=== PATIENT | female | born 1985 ===

== ENCOUNTER 2017-02-25 02:17 | Inpatient (IN) | payer MEDICAID ==
[2017-02-25 00:36] VITALS: BMI 33.9
[2017-02-25] MEDS ORDERED: Ampicillin 2 GM in Sodium Chloride 0.9% 100 ML IVPB STA (02:56)
[2017-02-25] MEDS ORDERED: Betamethasone Soluspan 30 mg/5mL Inj Susp IM ONE (02:56)
[2017-02-25] MEDS: Lactated Ringer's 1,000 ML IV SCH ×5 (03:00→17:00)
[2017-02-25] MEDS ORDERED: Magnesium Sulfate 2 gm/50 ml 2 GM/50 ML BAG IVPB ONE (03:05)
[2017-02-25] MEDS ORDERED: Magnesium Sulfate 4 gm/100 ml 4 GM/100 ML BAG IV ONE (03:07)
[2017-02-25] MEDS ORDERED: Magnesium Sul 40GM/1L SW 40 GM/1,000 ML ML IV ONE (03:07)
[2017-02-25 03:34] VITALS: O2SAT 99
[2017-02-25 04:26] LABS: RBC URINE 13 /hpf (0-3); URINE BACTERIA RARE (<OCC); URINE BILIRUBIN NEGATIVE (NEGATIVE); URINE BLOOD MODERATE (NEGATIVE); URINE COLOR YELLOW (YELLOW); URINE GLUCOSE (UA) NEG (Normal); URINE KETONE NEGATIVE (NEGATIVE); URINE LEUKOCYTE ESTERASE NEG Leu/uL (Negative); URINE PROTEIN NEGATIVE (NEGATIVE); URINE UROBILINOGEN 0.2-1.0 mg/dL (0.2-1.0); WBC URINE 2 /hpf (0-5)
[2017-02-25 04:29] LABS: BASO % 0.2 % (0.0-2.0); EOS # 0.1 K/uL (0.0-0.7); EOS % 1.2 % (0.0-4.0); LYMPH # 1.7 K/uL (1.0-4.3); LYMPH % 18.7 % (20.0-40.0); MEAN CELL VOLUME 85.2 fl (81.0-99.0); MEAN CORPUSCULAR HEMOGLOBIN 29.2 pg (27.0-31.0); MEAN CORPUSCULAR HGB CONC 34.3 g/dL (33.0-37.0); MONO # 0.4 K/uL (0.0-0.8); MONO % 4.9 % (0.0-10.0); NEUT # 6.8 K/uL (1.8-7.0); RED CELL DISTRIBUTION WIDTH 13.7 % (11.5-14.5); WHITE BLOOD COUNT 9.1 K/uL (4.8-10.8)
[2017-02-25] MEDS ORDERED: AMPicillin 1 GM in Sodium Chloride 0.9% 100 ML IVPB SCH (05:00)
--- NOTE | 2017-02-25 07:44 | OBADHP ---
Datetime: 02/25/2017 03:52 Admit Comment, IP Provider: 32 y/o female IUP at 35.2wks gestation with MARGIE 03/31 based on 8wk U/S (pt is unsure of LMP) transferred from [facility] for SPROM and intermittent contractions. P t had ROM at 23:30hrs and has been complaining of back pain [id number]. Was reported at [facility], [place] to be 2 -3cm dilated on exam. Denies vaginal bleeding, dysuria, fever, chills, headache. Reports good m ovement. Pt is requesting . PNC: [place]. Last U/S 11/24 Multiple fibroids, posterior placenta, appropriate MAYNOR and EFW, B lood Type O+ GBS negative (UCx), GC negative, HIV Neg, RPR neg, Rubella Immune, CBC nrml OBHx: Prior C section 2010 at 36 wks complicated with gestational HTN GynHx: Multiple fibroids in uterus measuring 2.59x4cm MedHx: denies Surghx: C section Meds: PNV Allergies: NKDA Social: Denies smoking, alcohol, drug use Traige Vitals: 124/84, 84, afebrile General: NAD Cardiac: RRR, normal S1,S2, no murmurs Resp: CTABL Abdomen. Gravid, NT Extremities: No LE Edema SSE: +pooling, clear/pink tinge Pelvic exam: Cervix 2cm dilated FHR: 140, reactive, no decels [place]: Irregular CTX q2-5min Abdominal U/S: Cephalic Assessment: IUP at 35.2wks gestation with SPROM, not in active labor. Reassuring FHT and maternal vital signs. Plan: Admit to L_D. Monitor for progression of labor. Continuous monitoring and monitor mate rnal vitals signs q4. Risks and benefits of vs Repeat C section discussed at length. Patient pan balized understanding. Consent forms signed. -Type and Screen -Ampicillin 2g loading, 1gm q4hrs -Behtamethasone 12g x1 -U/A, UCx, Utox -IV fluids Discussed with OB Attending Dr. Jennyfer Villareal, PGY1 OB Hospitalist note: This pt was seen and examined by me. Agree with above note ex A: IUP at 35+w (documented); early labor 2cm (examined by me) PROM; previous C/S x 1 at in 2010 ... will attempt to obtain documentation of C/S. With translating, she understood risks/complicatoin s of both C/S and . If unable to obtain C/S report, advised repeat C/S. She understood. Also, ispoke to Dr Johnson form where she was trasnferred from and she would try to obtian report [facility] Add: only had blood work and sono reports from [facility] Pelvic Type - PN: Adequate Extremities - PN: Normal Abdomen - PN: Normal Back - PN: Normal Breast - PN: Normal Lungs - PN: Normal Heart - PN: Normal Thyroid - PN: Normal Neurologic - PN: Normal HEENT - PN: Normal General - PN: Normal FHR - Baseline A Provider: 140 Amniotic Fluid Color, Provider: Clear Membranes, Provider: Ruptured Comments, ACOG Physical Exam: ROS: General: no weakness; no fatigue HEENT: no VILLASEÑOR; no visual dist CV: no palpitations; no no CP GI: no N/V no diarhea : no F/U/D MS: No joint pain Pool Provider: Positive Vital Signs Provider: Reviewed; Within Normal Limits IP Chief Complaint: Uterine contractions; Suspected ruptured membranes NICHD Variability Prov Fetus A: Moderate 6-25bpm NICHD Accel Fetus A IP Provider: [id number] FHR Category Provider Fetus A: Category I NICHD Decel Fetus A IP Provider: None Dilatation, Provider: 2 Genitourinary Exam: Normal DTRs - PN: Normal EGA AdmitDate IP: 35.2 IP Adm Impression: , intrauterine ; Ruptured Membranes IP Admit Plan: Admit to unit; Observation/Evaluation
[2017-02-25] MEDS ORDERED: ceFAZolin IV 1 gm in Dextrose 1 GM/50 ML BAG IVPB ONE (08:00)
[2017-02-25] MEDS ORDERED: Oxytocin 30 units/LR 500ML 30 U/500 ML BAG IV ONE (08:04)
[2017-02-25] MEDS ORDERED: Phenylephrine 10 mg/ml Inj ONE (08:28)
--- NOTE | 2017-02-25 08:29 | OBPN ---
Datetime: 02/25/2017 08:00 IP Progress Impression: Reassuring heart rate IP Informed Consent Obtain: Section Delivery; Risks, Benefits and Alternatives Discussed IP Progress Plan: Deliver- Section Pool Provider: Positive Membranes, Provider: Ruptured Amniotic Fluid Color, Provider: Clear Contraction Comments Provider: +q3 FHR - Baseline A Provider: 135 IP Progress Note Comment: notified that no report of C/S obtianed from With dope weigh operator present, C/S discussed with its risks/complciatoins. She understood. Informed co nsent obtained. NICHD Accel Fetus A IP Provider: 15X15 FHR Category Provider Fetus A: Category I NICHD Variability Prov Fetus A: Moderate 6-25bpm Dilatation, Provider: 3 Effacement, Provider: 50 Station, Provider: high Datetime: 02/25/2017 03:52 Vital Signs Provider: Reviewed; Within Normal Limits NICHD Decel Fetus A IP Provider: None
[2017-02-25] MEDS ORDERED: Ampicillin 2 GM in Sodium Chloride 0.9% 100 ML IVPB SCH (09:30)
[2017-02-25] MEDS ORDERED: Morphine 5 MG/ML SYRINGE IV PRN (09:46)
[2017-02-25] MEDS ORDERED: Oxycodone/Acetaminophen 5/325 mg Tab PO PRN (09:52)
[2017-02-25] MEDS ORDERED: Lactated Ringer's 1,000 ML IV SCH (20:15)
[2017-02-26] MEDS: Oxycodone/Acetaminophen 5/325 mg Tab PO PRN ×3 (00:18→17:55)
[2017-02-26] MEDS: Lactated Ringer's 1,000 ML IV SCH (00:19)
[2017-02-26 05:32] LABS: HEMATOCRIT 32.9 % (34.0-47.0); MEAN CELL VOLUME 87.8 fl (81.0-99.0); MEAN CORPUSCULAR HEMOGLOBIN 28.6 pg (27.0-31.0); MEAN CORPUSCULAR HGB CONC 32.5 g/dL (33.0-37.0); WHITE BLOOD COUNT 12.5 K/uL (4.8-10.8)
[2017-02-26] MEDS ORDERED: Influenza Vaccine 18yr & older 0.5 ML/45 MCG SYR IM ONE (09:00)
--- NOTE | 2017-02-26 09:38 | OBPPN ---
Datetime: 02/26/2017 07:15 PP Pain Prov: Within normal limits PP Nausea Prov: Denies PP Flatus Prov: Yes PP BM Prov: No PP Breasts Prov: Not Done PP Heart Prov: Normal PP Lungs Prov: Normal PP Abdomen/Uterus Prov: Normal PP Lochia Prov: Normal PP CVA Tenderness Prov: Not Done PP Extremities Prov: Normal PP Impression Prov: Normal progression PP Plan Prov: Continue present management PP Progress Note Prov: 32 yo now , s/p repeat yesterday at 35.2 weeks due to premature rupture of membranes. POD 2. Pt had uneventful overnight, no acute events. Has moderate pelvic pain and pain at incision site, controlled with medications.Has not been out of bed much yesterday- encour aged to today. Scott was removed. Patient is feeding baby via pumped breast milk. She is tolerating regular diet, and has passed gas. Lochia like menses in volume. ROS: denies chest pain, shortness of breath, GI upset, headache, dizziness, leg/calf pain PE: Gen: AAOx3, not in acute distress, appears comfortable. CV: S1S2 present, RRR Resp: clear to ausc bilaterally, normal resp effort Abd: +BS, fundus firm, appropriate tenderness to palpation. Dressing in place, clean. Extremities: no swelling, no tenderness to palpation, negative good's. A: 32 yo s/p , POD 2. Doing well. P: Continue with current management. Pain control, encourage ambulation, encourage . Addendum by Dr. Sales: I have evaluated the patient independently and I agree with the above. The patient is POD #2, continue current management Vital Signs Provider PP: Reviewed; Within Normal Limits
[2017-02-27] MEDS: Oxycodone/Acetaminophen 5/325 mg Tab PO PRN ×2 (07:48→16:21)
--- NOTE | 2017-02-27 09:38 | OBPPN ---
Datetime: 02/27/2017 06:17 PP Pain Prov: Within normal limits PP Nausea Prov: Denies PP Flatus Prov: Yes PP BM Prov: Yes PP Breasts Prov: Normal PP Heart Prov: Normal PP Abdomen/Uterus Prov: Normal PP Lochia Prov: Normal PP Extremities Prov: Normal PP C/S Incision Prov: Normal PP Progress Prov: Normal PP Impression Prov: Normal progression PP Plan Prov: Continue present management PP Progress Note Prov: POD #2 32 yo now , s/p repeat yesterday (02/25) at 35.2 weeks due to premature rupture of m embranes. POD 2. Pt had uneventful overnight, no acute events. Has moderate pelvic pain and pain at i ncision site, controlled with medications. Has not been out of bed much yesterday- encouraged to tokacie olson. Scott was removed. Patient is feeding baby via pumped breast milk. She is tolerating regular diet , and has passed gas. Lochia like menses in volume. 32 y/o female repeat c section, post op day 2, delivered at 35.2wks due to PROM seen and evaluated this morning by me. Pt had no acute overnight events. Reports pelvic pain and pain along her incisio n site that is well controlled with pain medication. Ambulating OOB without lightheadedness or dizzi ness. Scott removed yesterday morning and dressing removed last night. Pt tolerating regular diet wel l, reports having BM and passing gas per rectum. Lochia similar to menses in volume. Denies fever, ch ills, chest pain, SOB, N/V/D, calf pain. Vitals: BP 129/74, HR 80, Tmax 98.6 (No hypertensive episodes overnight) Gen: AAOx3, not in acute distress, appears comfortable. CV: S1S2 present, RRR Resp: clear to ausc bilaterally, normal resp effort Abd: +BS, fundus firm, appropriate tenderness to palpation. Incision clean, erythema, active bleed ing, or discharge Extremities: no swelling, no tenderness to palpation A: 32 yo s/p , POD 2. Doing well. P: Continue with current management. Pain control, encourage ambulation, encourage . Discussed contraception, pt states she is considering use of condoms to prevent . Scripts fo r discharge placed in chart in advance. Anticipated D/C for 02/28. Calvin Villareal, PGY1 OB Hospitalist note. On rounds this morning, I saw and examined this patient. Agree with note. MONIKA LAN Vital Signs Provider PP: Reviewed; Within Normal Limits
[2017-02-28] MEDS: Oxycodone/Acetaminophen 5/325 mg Tab PO PRN (08:59)
--- NOTE | 2017-02-28 09:45 | OBDCSUM ---
Datetime: 02/28/2017 08:46 Discharged to, Provider: Home Follow up at, Provider: Sukhdeep soria Disch Instr Activity: Normal activity; May be up to bathroom; May be up for meals; May Shower Disch Instr Diet: Regular Discharge Instructions, Provider: Routine instructions given Discharge Diagnosis, Provider: Delivery Discharge Time: 02/28/2017 09:43 Follow up in weeks, Provider: 1-2 weeks Contraception discussed, Prov: Yes Disch Activity Restrictions: No exercising; No lifting; No sexual activity; Nothing in vagina - Inte rcourse, tampons, douche Contraception after Delivery: Foam/Condoms
--- NOTE | 2017-02-28 09:46 | OBPPN ---
Datetime: 02/28/2017 08:39 PP Pain Prov: Within normal limits PP Nausea Prov: Denies PP Flatus Prov: Yes PP BM Prov: Yes PP Breasts Prov: Not Done PP Heart Prov: Normal PP Lungs Prov: Normal PP Abdomen/Uterus Prov: Normal PP Lochia Prov: Normal PP Vulva/Perineum Prov: Normal PP CVA Tenderness Prov: Normal PP Extremities Prov: Normal PP C/S Incision Prov: Normal PP Progress Prov: Normal PP Impression Prov: Normal progression PP Plan Prov: Continue present management; Discharge PP Progress Note Prov: 32 y/o now post op day 3 w/ repeat seen and evaluated this mor quintin. Pt denies any overnight evernts. Reports pelvic pain and pain along her incision site that is well controlled with pain medication. Ambulating OOB without lightheadedness or dizziness. reports having BM and passing gas per rectum. Lochia similar to menses in volume. Pt is tolerating regular di et well. Denies nausea, vomiting, fever, chills, dyspnea, chest pain or calf pain. Physical Exam: General: A_O, resting comfortably in bed, NAD HEENT: white sclera, pink conjunctiva, oral mucosa moist. Lungs: CTA B/L, no wheezing, rhonchi or rales CVS: RRR, S1, S2 NL ABD: ND, +BS; Incision: clean, dry and intact. no induration, erythema or fluctuation. no dehiscence EXT: no edema, negative Katie's sign, calves nontender Neuro/psych: AAOX3, no grossly focal deficit, preserved affect and mood. Assessement: 32 yo s/p , POD#3, doing well. plan: Discharge to home today Ibuprofen 600 mg 1 tab po prn q6 if moderate pain Percocet 5/325mg 1 tab po prn q6h if severe pain Colace 100 mg one tab PO HS qdaily Encourage and ambulatory Sheldon [place], PGY1 Addendum by Dr. Sales: patient evaluated independently and I agree with the above. Patient for dis charge
[2017-03-01 03:15] VITALS: BP 130/73; PULSE 79; RESP 20; TEMP 98.6
--- NOTE | 2017-03-02 02:39 | OP ---
PROCEDURE DATE: 02/25/2017 PREOPERATIVE DIAGNOSES: Intrauterine at 35 plus weeks' gestation, previous section x1 with a non-documented scar in early labor, premature rupture of membranes. POSTOPERATIVE DIAGNOSES: Intrauterine at 35 plus weeks' gestation, previous section x1 with a non-documented scar in early labor, premature rupture of membranes. PROCEDURE: Repeat low transverse section via previous Pfannenstiel incision. SURGEON: Magno Burger DO MILL CRANE OPERATOR: Dr. Dhiraj Rahman, (Dr. Rahman is a board certified ENERGY CONSERVATION SPECIALIST physician, who was present as hospitalist. His presence was necessary and vital. There were no residents available.) ANESTHESIOLOGIST: Dr. Serrano. ANESTHESIA: Spinal. OPERATIVE FINDINGS: Live female infant delivered from cephalic presentation. Clear amniotic fluid noted. scores of 9 and 9 given at one and five minutes respectively. Placenta was delivered intact manually. Multiple small fibroids were noted throughout the uterus. Ovaries and tubes appeared to be within normal limits grossly. She remained hemodynamically stable throughout the procedure. ESTIMATED BLOOD LOSS: 800 mL. DESCRIPTION OF PROCEDURE: Carmela was brought to the operating room, placed in supine position after successful spinal anesthesia by Dr. Serrano. Catheter was used to drain the bladder of its contents and left in place and noted to be draining clear urine. She was placed in supine position. Compression boots were placed on both lower extremities. She was draped and prepped in the usual sterile manner. Once adequate anesthesia was obtained, an incision was made through the previous surgical scar using a scalpel. The incision was then taken down to underlying fascia using electrocautery. Fascia was nicked in the midline and extended bilaterally using electrocautery. Inferior aspect of the fascia was grasped using 2 Yoselin clamps and tented up and the rectus muscle was both bluntly and sharply dissected. Same was done with the superior aspect of the fascia. In the midline superiorly, the rectus muscle was grasped using 2 Allis clamps tented up and the midline was incised using a scalpel. Upon identifying the peritoneum, this was tented up using 2 Josselin clamps and incised using Metzenbaum scissors. Incision was then extended superiorly and inferiorly with direct visualization of the bladder and intestines. Two wet lap pads were placed in the pericolic gutters. A bladder flap was created on the peritoneum and the uterus using Metzenbaum scissors and then extended bilaterally using Metzenbaum scissors. A bladder flap was created digitally. Bladder blade was then inserted behind the bladder flap. A low transverse incision was made using a scalpel. Upon entering the uterus, clear amniotic fluid was noted. The incision was then extended bilaterally using Band-Aid scissors. Infant was then delivered as atraumatically as possible. First the infant's head was delivered and was bulb suctioned nasopharyngeally. The remainder of the infant was then delivered as atraumatically as possible. The was crying spontaneously. Cord was clamped and cut. was handed to the maintenance repairer in attendance. Cord bloods were obtained. Placenta was delivered intact manually. Uterus was then exteriorized, multiple fibroids were noted, largest being approximately 3 to 4 cm in size on the anterior right side of the uterus. Good contraction of the uterus was noted. IV Pitocin given. Uterus was cleared of debris and clots. A 0 Vicryl suture was used to close the first layer of the uterus in an interlocking fashion. Second layer of the uterus was closed using 0 Vicryl suture imbricating the first layer. Good hemostasis was assured. Ovaries and tubes appeared to be within normal limits. Posterior cul-de-sac was noted to be cleared of debris and clots. Irrigation was performed. The uterus was then placed back into peritoneal cavity. The entire cul-de-sac was noted to be clear of debris and clots. Lower uterine segment incision was noted to have good hemostasis. Thereafter, all equipment was removed and accounted for. A 0 Vicryl suture was used to approximate the peritoneum in a running fashion. Rectus muscle was noted to have good hemostasis. A 0 Vicryl suture was used to approximate the rectus muscle x3 in an intermittent fashion. A 0 Vicryl suture was used to approximate the fascia in a running fashion. Irrigation was performed. Hemostasis was assured. A 2-0 plain suture was used to approximate the subcuticular layer x3. A 3-0 Vicryl suture was used to approximate the skin. Dermabond, Steri-Strips, and pressure bandage were applied. All equipments, sponges, and needles accounted for. Magno Burger DO
== END 2017-02-28 18:30 | disposition home or self-care (01) | DRG 765 ==
LOC: H.EROB2 02:17 → H.L&D 02:56 → H.OB/GYN 12:42
PROVIDERS: ADMIT Obstetrics & Gynecology; ATTEND Obstetrics & Gynecology
PROC: 10D00Z1 Extraction of Products of Conception, Low, Open Approach (ICD-10-PCS; principal; 2017-02-25)
PROC: 4A1HXCZ Monitoring of Products of Conception, Cardiac Rate, External Approach (ICD-10-PCS; 2017-02-25)
DX: O34.211 Maternal care for low transverse scar from previous cesarean delivery (principal); O60.14X0 Preterm labor third trimester with preterm delivery third trimester, not applicable or unspecified; Z37.0 Single live birth; N85.8 Other specified noninflammatory disorders of uterus; Z3A.35 35 weeks gestation of pregnancy; O42.013 Preterm premature rupture of membranes, onset of labor within 24 hours of rupture, third trimester